=== PATIENT | male | born 1980 | race Caucasian/White ===

== ENCOUNTER 2018-06-22 11:50 | Emergency (ER) | payer OTHER ==
[2018-06-22] MEDS ORDERED: PROP60CA22 PO (11:59)
[2018-06-22] MEDS ORDERED: CETI10CA8 PO (11:59)
[2018-06-22] MEDS ORDERED: ceFAZolin 1 GM VIAL IVP ONE (12:00)
[2018-06-22] MEDS ORDERED: NS(*) 0.9% 1000 ML BAG 1,000 ML IV ONE (12:00)
[2018-06-22] MEDS ORDERED: ONDANSETRON 4 MG/2 ML VIAL IVP ONE (12:00)
--- NOTE | 2018-06-22 12:04 | ER Report ---
History and Physical Time Seen By MD: 11:54 Hx. of Stated Complaint: PT FELL INTO A TRAILER HITCH A FEW MIN AGO AND WAS STUCK ONTO THE HITCH. SUSTAINED A LARGE LAC TO L UPPER THIGH HPI/ROS CHIEF COMPLAINT: Trauma to left thigh HISTORY OF PRESENT ILLNESS: This is a 37-year-old male who presents to the emergency department for a traumatic injury to the left thigh. The patient states that he was jumping from the bumper of his truck over to his trailer, he slipped and his left medial thigh landed on the trailer hitch which was in the apposition causing atraumatic laceration and open wound to the left medial thigh. Bleeding is controlled. Patient is very pale and diaphoretic. No other injuries. There is adipose tissue exposed. CMS intact distal to the injury. REVIEW OF SYSTEMS: Constitutional: No fever, no chills. Eyes: No discharge. ENT: No sore throat. Cardiovascular: No chest pain, no palpitations. Respiratory: No cough, no shortness of breath. Gastrointestinal: No abdominal pain, no vomiting. Genitourinary: No hematuria. Musculoskeletal: No back pain. Skin: As above. Neurological: No headache. Allergies: Coded Allergies: No Known Drug Allergies (Unverified , 06/22/18) Home Meds Active Scripts Hydrocodone Bit/Acetaminophen (HYDROCODON-ACETAMINOPHEN 5-325) 1 Each Tablet, 1 EACH PO Q4-6H PRN for PAIN, #6 TAB 0 Refills Prov:EILEEN BROCK [facility] 06/22/18 Cephalexin 500 Mg Tab (KEFLEX 500 MG TAB) 500 Mg Tablet, 500 MG PO Q6H, #28 TAB Prov:EILEEN BROCK [facility] 06/22/18 Reported Medications Propranolol Hcl (PROPRANOLOL HCL) 60 Mg Cap.sa.24h, 60 MG PO QDAY 06/22/18 Cetirizine Hcl (ZYRTEC) 10 Mg Capsule, 10 MG PO QDAY, CAPSULE 06/22/18 Past Medical/Surgical History The patient has a past medical and surgical history of hypertension, dental surgery. Reviewed Nurses Notes: Yes Constitutional Vital Sign - Last 24 Hours 06/22/18 06/22/18 06/22/18 06/22/18 11:53 11:54 11:55 11:59 Temp 97.5 Pulse 62 Resp 24 B/P (MAP) 93/59 93/59 (70) 71/42 (52) 93/60 (71) Pulse Ox 97 O2 Delivery Room Air 06/22/18 06/22/18 06/22/18 06/22/18 12:00 12:05 12:10 12:20 Pulse 94 95 B/P (MAP) 97/53 (68) 113/61 (78) 118/71 (87) Pulse Ox 98 96 06/22/18 06/22/18 06/22/18 06/22/18 12:30 12:40 12:50 13:00 Pulse 83 B/P (MAP) 127/71 (89) 122/77 (92) 124/79 (94) 117/66 (83) Pulse Ox 99 06/22/18 06/22/18 06/22/18 06/22/18 13:10 13:20 13:30 13:40 Pulse 71 73 B/P (MAP) 109/65 (80) 116/71 (86) 111/72 (85) 110/71 (84) Pulse Ox 98 97 06/22/18 13:50 B/P (MAP) 116/68 (84) Physical Exam General Appearance: The patient is alert, has no immediate need for airway protection and no signs of toxicity, pale, diaphoretic and anxious. Eyes: Pupils equal and round no pallor or injection. ENT, Mouth: Mucous membranes are moist. Respiratory: There are no retractions, lungs are clear to auscultation. Cardiovascular: Regular rate and rhythm, no murmurs, clicks or rubs. Gastrointestinal: Abdomen is soft and non tender, no masses, bowel sounds normal. Neurological: Alert and oriented 4. Moving all extremities. Following all commands. No focal neurologic deficits. Skin: Large open wound/laceration to the left medial thigh, adipose tissue exposed, bleeding is controlled. No other identifiable injuries. CMS intact distal to the injury. Small abrasion to the left anterior chest, no chest pain or crepitus or flail chest. Musculoskeletal: Neck is supple non tender. Extremities are nontender, nonswollen and have full range of motion. DIFFERENTIAL DIAGNOSIS: After history and physical exam differential diagnosis was considered for laceration, femoral artery injury, crush injury and puncture wound. Medical Decision Making Data Points Result Diagram: 06/22/18 1158 06/22/18 1158 Laboratory Hematology Test 06/22/18 11:58 Red Blood Count 5.88 M/uL (4.00-5.60) Mean Corpuscular Volume 87.7 fL (80.0-96.0) Mean Corpuscular Hemoglobin 31.1 pg (26.0-33.0) Mean Corpuscular Hemoglobin Concent 35.4 g/dL (32.0-36.0) Red Cell Distribution Width 12.7 % (11.5-14.5) Mean Platelet Volume 7.6 fL (7.2-11.1) Neutrophils (%) (Auto) 45.3 % (39.4-72.5) Lymphocytes (%) (Auto) 42.4 % (17.6-49.6) Monocytes (%) (Auto) 8.2 % (4.1-12.4) Eosinophils (%) (Auto) 3.3 % (0.4-6.7) Basophils (%) (Auto) 0.8 % (0.3-1.4) Nucleated RBC Relative Count (auto) 0.1 /100WBC Neutrophils # (Auto) 3.7 K/uL (2.0-7.4) Lymphocytes # (Auto) 3.4 K/uL (1.3-3.6) Monocytes # (Auto) 0.7 K/uL (0.3-1.0) Eosinophils # (Auto) 0.3 K/uL (0.0-0.5) Basophils # (Auto) 0.1 K/uL (0.0-0.1) Nucleated RBC Absolute Count (auto) 0.01 K/uL Sodium Level 139 mmol/L (137-145) Potassium Level 3.0 mmol/L (3.5-5.0) Chloride Level 103 mmol/L (98-107) Carbon Dioxide Level 19 mmol/L (22-30) Blood Urea Nitrogen 8 mg/dl (9-21) Creatinine 0.90 mg/dl (0.66-1.25) Glomerular Filtration Rate Calc > 60.0 Random Glucose 116 mg/dl (75-110) Calcium Level 9.2 mg/dl (8.4-10.2) Total Bilirubin 1.6 mg/dl (0.2-1.3) Aspartate Amino Transf (AST/SGOT) 41 U/L (0-35) Alanine Aminotransferase (ALT/SGPT) 72 U/L (0-56) Alkaline Phosphatase 52 U/L (0-126) Total Protein 7.7 g/dl (6.3-8.2) Albumin 4.7 g/dl (3.5-5.0) Chemistry Test 06/22/18 11:58 White Blood Count 8.1 k/uL (4.5-11.0) Red Blood Count 5.88 M/uL (4.00-5.60) Hemoglobin 18.3 g/dL (14.0-18.0) Hematocrit 51.6 % (42.0-52.0) Mean Corpuscular Volume 87.7 fL (80.0-96.0) Mean Corpuscular Hemoglobin 31.1 pg (26.0-33.0) Mean Corpuscular Hemoglobin Concent 35.4 g/dL (32.0-36.0) Red Cell Distribution Width 12.7 % (11.5-14.5) Platelet Count 341 K/uL (150-450) Mean Platelet Volume 7.6 fL (7.2-11.1) Neutrophils (%) (Auto) 45.3 % (39.4-72.5) Lymphocytes (%) (Auto) 42.4 % (17.6-49.6) Monocytes (%) (Auto) 8.2 % (4.1-12.4) Eosinophils (%) (Auto) 3.3 % (0.4-6.7) Basophils (%) (Auto) 0.8 % (0.3-1.4) Nucleated RBC Relative Count (auto) 0.1 /100WBC Neutrophils # (Auto) 3.7 K/uL (2.0-7.4) Lymphocytes # (Auto) 3.4 K/uL (1.3-3.6) Monocytes # (Auto) 0.7 K/uL (0.3-1.0) Eosinophils # (Auto) 0.3 K/uL (0.0-0.5) Basophils # (Auto) 0.1 K/uL (0.0-0.1) Nucleated RBC Absolute Count (auto) 0.01 K/uL Glomerular Filtration Rate Calc > 60.0 Calcium Level 9.2 mg/dl (8.4-10.2) Total Bilirubin 1.6 mg/dl (0.2-1.3) Aspartate Amino Transf (AST/SGOT) 41 U/L (0-35) Alanine Aminotransferase (ALT/SGPT) 72 U/L (0-56) Alkaline Phosphatase 52 U/L (0-126) Total Protein 7.7 g/dl (6.3-8.2) Albumin 4.7 g/dl (3.5-5.0) EKG/Imaging Imaging FEMUR LEFT COMPARISONS: None. ADDITIONAL PERTINENT HISTORY: Trailer hitch fell on leg with crush injury. FINDINGS: Osseous structures: Negative. Joint spaces: Negative. Surrounding soft tissues: Subcutaneous emphysema along the medial aspect of the proximal portions of the left thigh. IMPRESSION: 1. No evidence of acute bony abnormality involving the left femur. #2 subcutaneous emphysema involving the medial aspects of the proximal portions of the left thigh. Report Dictated By: David Jaquez MD at 06/22/2018 12:57 PM Report E-Signed By: David Jaquez MD at 06/22/2018 12:59 PM [id number] ED Course/Re-evaluation Clinical Indication for ER IV: Hydration, IV Access ED Course The patient was admitted to room. A history physical obtained. Different diagnoses were considered. An IV was started. A CBC, CMP were obtained. Lab studies unremarkable. 1 g of Ancef IV. 1 L normal saline. X-ray of the left femur showing no evidence of acute bony abnormality involving the left femur. #2 subcutaneous emphysema involving the medial aspects of the proximal portions of the left thigh. I did review the results with the patient. The wound was thoroughly irrigated and repaired as noted below. The patient was started on Keflex. Patient was also sent home with prescription for hydrocodone. Patient was instructed to take at least 2 days off of work and slowly progress back into a regular routine, no swimming or submersion of the wound until the sutures come out. Patient was also instructed to monitor for signs of infection or any other concerning symptoms. Patient was in agreement with this plan of care and discharged home. Instructed to return in 10 days to have the sutures removed. Procedure: Laceration repair. Verbal consent was obtained from the patient. The angulated 8 cm laceration on the left medial thigh was anesthetized in the usual fashion. The wound was scrubbed and irrigated with 500mls of NS, draped and explored to its base with a gloved finger. Adipose tissue, tendon and muscle fascia visualized. No tendon, fascia or facia injury was identified. The wound was repaired with 4, 4-0 Vicryl, simple interrupted, 14, 4-0 Prolene simple interrupted. The wound repair was complex. The procedure was performed by myself. Decision to Disposition Date: Jun 22, 2018 Decision to Disposition Time: 13:45 Depart Departure Latest Vital Signs Vital Signs Date Time Temp Pulse Resp B/P (MAP) Pulse Ox O2 Delivery O2 Flow Rate FiO2 06/22/18 13:50 116/68 (84) 06/22/18 13:40 73 97 06/22/18 11:53 97.5 24 Room Air Impression: Primary Impression: Open wound of left thigh Additional Impression: Laceration of thigh, left, complicated Condition: Improved Disposition: HOME OR SELF-CARE New Scripts Hydrocodone Bit/Acetaminophen (HYDROCODON-ACETAMINOPHEN 5-325) 1 Each Tablet 1 EACH PO Q4-6H PRN for PAIN, #6 TAB 0 Refills Prov: EILEEN BROCK [facility] 06/22/18 Cephalexin 500 Mg Tab (KEFLEX 500 MG TAB) 500 Mg Tablet 500 MG PO Q6H, #28 TAB Prov: EILEEN BROCK [facility] 06/22/18 Patient Instructions: Acute Wound Care (ED), Laceration (ED) Additional Instructions: Keep wound dry for 48 hours. Follow up with your primary care provider or the ED in the next 10 days to have sutures removed. Monitor for signs of infection; redness, swelling, heat, discharge, increasing pain or red streaking. Take Tylenol or Ibuprofen as needed for pain. Take Hydrocodone for severe pain. Take the antibiotics as prescribed. Return to the ER with any concerns. You may change dressing as needed. Be careful when squatting as to prevent the sutures from tearing through the skin. Drink plenty of water. Get plenty of rest. Return to the ED for any other concerns or worsening symptoms. Problem Qualifiers Primary Impression: Open wound of left thigh Encounter type: initial encounter Qualified Codes: S71.102A - Unspecified open wound, left thigh, initial encounter Additional Impression: Laceration of thigh, left, complicated Encounter type: initial encounter Qualified Codes: S71.112A - Laceration without foreign body, left thigh, initial encounter EILEEN BROCK [employer]- Jun 22, 2018 12:04
[2018-06-22 12:11] LABS: PLATELET COUNT, AUTOMATED 341 K/uL (150-450)
--- NOTE | 2018-06-22 13:02 | RADIOLOGY IMAGING REPORT ---
FACILITY: [facility] PATIENT NAME: Finesse Kaur : 1980 MR: [id number] V: [id number] EXAM DATE: ORDERING PHYSICIAN: EILEEN BROCK TECHNOLOGIST: Location: [facility] Patient: Finesse Kaur : 1980 Visit/Account:[id number] Date of Sevice: 06/22/2018 FEMUR LEFT COMPARISONS: None. ADDITIONAL PERTINENT HISTORY: Trailer hitch fell on leg with crush injury. FINDINGS: Osseous structures: Negative. Joint spaces: Negative. Surrounding soft tissues: Subcutaneous emphysema along the medial aspect of the proximal portions of the left thigh. IMPRESSION: 1. No evidence of acute bony abnormality involving the left femur. #2 subcutaneous emphysema involvin g the medial aspects of the proximal portions of the left thigh. Report Dictated By: David Jaquez MD at 06/22/2018 12:57 PM Report E-Signed By: David Jaquez MD at 06/22/2018 12:59 PM [id number]
[2018-06-22 13:50] VITALS: BP 116/68
[2018-06-22] MEDS ORDERED: CEPH500T7 PO (13:50)
[2018-06-22] MEDS ORDERED: HYDR-385 PO (13:50)
== END 2018-06-22 14:03 | disposition home or self-care (01) ==
LOC: ER 11:53
DX: S71.112A Laceration without foreign body, left thigh, initial encounter (principal); S71.102A Unspecified open wound, left thigh, initial encounter
CPT/HCPCS: 12034; 73552; 85025; 96374; 96375; 99284; J0690; J2405; J7030; 82040; 82247; 82310; 82374; 82435; 82565; 82947; 84075; 84132; 84155; 84295; 84450; 84460; 84520